=== PATIENT | male | born 1970 | race African-American/Black ===

== ENCOUNTER 2017-02-13 06:42 | Emergency (ER) | payer OTHER ==
[~2017-02-13] VITALS: Ht 180.3 cm; Wt 100.0 kg
[~2017-02-13 06:42] MED LIST: ALBUTEROL17 GM INH; ALLEGRA ALLERG180 MG PO; AMITRYPTYLINE PO; ASPIRIN ENTERI325 M1 PO; AZITHROMYCIN250 MG PO; BACITRACIN15 GM TOP; BACITRACIN30 GM TOP; BACTRIM DS TABL1 TA1 PO; BACTRIM DS TABL1 TAB PO; BACTROBAN22 GM TOP; COLACE PO; DAZIDOX10 MG PO; EC-NAPROSYN500 MG PO; EPIPEN0.3 MG/0.1 IM; FLEXERIL PO; FLEXERIL10 M1 PO; FLONASE 0.05% N16 G1; IBUPROFEN PO; IBUPROFEN800 MG PO; KEFLEX PO; KEFLEX500 M1 PO; LEVEMIR SUBQ; LISINOPRIL PO; LORTAB 5/500 TA1 TA1; LORTAB 5/500 TA1 TA1 PO; LORTAB 7.5-5001 TAB PO; LYRICA50 MG PO; MEDROL PO; METFORMIN PO; METOPROLOL TAR25 MG PO; MOBIC PO; MUCINEX DM1 TAB.SR . PO; NAPROXEN PO; NEURONTIN300 MG PO; NO MEDICATIONS; OMNICEF PO; PEPCID AC20 M2 PO; PHENERGAN DM1 ML PO; PHENERGAN25 MG PO; POLYTRIM EYE DR10 ML OD; PRINIVIL10 MG; ROBITUSSIN-DM118 M1 PO; RONDEC-DM ORAL30 ML PO; SENNA-EXTRA17.2 MG PO; ULTRAM PO; VIBRAMYCIN100 M1 PO; VOLTAREN75 MG PO; ZANAFLEX PO; ZITHROMAX PO; ZOCOR PO; [UNRECOGNIZED DRUG - REMARK]; [UNRECOGNIZED DRUG - REMARK]
== END 2017-02-13 08:40 | disposition home or self-care (01) ==
LOC: SED 06:42
DX: L02.611 Cutaneous abscess of right foot (principal); E11.9 Type 2 diabetes mellitus without complications; B19.20 Unspecified viral hepatitis C without hepatic coma; K21.9 Gastro-esophageal reflux disease without esophagitis; F17.200 Nicotine dependence, unspecified, uncomplicated; Z88.0 Allergy status to penicillin; Z88.5 Allergy status to narcotic agent; Z88.1 Allergy status to other antibiotic agents; Z88.8 Allergy status to other drugs, medicaments and biological substances; Z79.84 Long term (current) use of oral hypoglycemic drugs; Z79.4 Long term (current) use of insulin
CPT/HCPCS: 82947; 99283